=== PATIENT | male | born 2000 | race Caucasian/White ===

== ENCOUNTER 2018-09-25 16:46 | Emergency (ER) | payer BC ==
--- NOTE | 2018-09-25 17:31 | ED ---
Throat Pain/Nasal Congestion - HPI Summary HPI Summary: This patient is a 18 year old M presenting to [facility] c/o throat pain and bleeding that began today. Pt was recently dx with mono and given prednisone, today is his last dose. The patient rates the pain 4/10 in severity. Patient reports fever that has resolved. He states he was could feel blood gather in the back of his throat yesterday and was able to bring it up, but that it is worse today. He received a strep test at the time of the mono test this was a week ago today. Pt states he has had throat swelling for the last 2 weeks. He was seen at his home doctor. - History of Current Complaint Chief Complaint: EDThroatPain Time Seen by Provider: 09/25/18 17:28 Hx Obtained From: Patient Onset/Duration: Lasting Days, Still Present Severity: Moderate - Allergies/Home Medications Allergies/Adverse Reactions: Allergies Allergy/AdvReac Type Severity Reaction Status Date / Time cefdinir [From Omnicef] Allergy Severe Hives/Diff. Verified 09/25/18 17:01 Breathing/I tching PMH/Surg Hx/FS Hx/Imm Hx Infectious Disease History: No Infectious Disease History: Denies: Traveled Outside the [place] in Last 30 Days - Social History Occupation: Student Lives: Dormitory/Roommates Alcohol Use: Occasionally Hx Substance Use: No Substance Use Type: Reports: None Hx Tobacco Use: No Smoking Status (MU): Never Smoked Tobacco Review of Systems Positive: Fever - resolved Positive: Sore Throat, Other - bleeding from throat All Other Systems Reviewed And Are Negative: Yes Physical Exam - Summary Physical Exam Summary: Appearance: Well appearing, no pain distress Skin: warm, dry, reflects adequate perfusion Head/face: normal Eyes: EOMI, LO ENT: pharyngeal erythema, the right tonsil is inflamed and enlarged Neck: supple, non-tender Respiratory: CTA, breath sounds present Cardiovascular: RRR, pulses symmetrical Abdomen: non-tender, soft Musculoskeletal: normal, strength/ROM intact Neuro: normal, sensory motor intact, A&Ox3 Triage Information Reviewed: Yes Vital Signs On Initial Exam: Initial Vitals Temp Pulse Resp BP Pulse Ox 98.6 F 88 16 138/98 98 09/25/18 16:55 09/25/18 16:55 09/25/18 16:55 09/25/18 16:55 09/25/18 16:55 Vital Signs Reviewed: Yes Diagnostics - Vital Signs Vital Signs Temp Pulse Resp BP Pulse Ox 09/25/18 16:55 98.6 F 88 16 138/98 98 - Laboratory Result Diagrams: 09/25/18 17:42 09/25/18 17:42 Lab Statement: Any lab studies that have been ordered have been reviewed, and results considered in the medical decision making process. EENT Course/Dx - Course Assessment/Plan: This patient is a 18 year old M presenting to [facility] c/o throat pain and bleeding that began today. Pt was recently dx with mono and given prednisone, today is his last dose. Bloodwork obtained. Pt was negative for strep and positive for mono. Patient will be discharged and follow up from [facility] . The patient is agreeable with this plan. - Differential Diagnoses Differential Diagnoses: Pharyngitis, Tonsilitis - Diagnoses Provider Diagnoses: Mononucleosis, Pharyngitis Discharge - Sign-Out/Discharge Documenting (check all that apply): Patient Departure - Discharge Plan Condition: Stable Disposition: HOME Patient Education Materials: Mononucleosis (ED), Pharyngitis (ED) Referrals: [facility] [place] - Gurpreet SANTIAGO [Medical Doctor] - Additional Instructions: Follow up with your primary care physician in 1-3 days. RETURN TO THE EMERGENCY DEPARTMENT FOR CHANGING OR WORSENING SYMPTOMS. - Billing Disposition and Condition Condition: STABLE Disposition: Home - Attestation Statements Document Initiated by Mushtaq: Yes Documenting Scribe: Cliff Cordoba Provider For Whom Mushtaq is Documenting (Include Credential): Alexandre Lopez MD Scribe Attestation: Cliff Paulson scribed for Alexandre Lopez MD on 09/25/18 at 1903. Scribe Documentation Reviewed: Yes Provider Attestation: The documentation as recorded by the Cliff apodaca accurately reflects the service I personally performed and the decisions made by me, Alexandre Lopez MD
[2018-09-25 17:53] LABS: Hematocrit 41 % (42-52); Hemoglobin 13.9 g/dl (14.0-18.0); Mean Corpuscular HGB Conc 34 g/dl (31-36); Mean Corpuscular Hemoglobin 27 pg (27-31); Mean Corpuscular Volume 80 fL (80-94); Mean Platelet Volume 7.7 fL (7.4-10.4); Platelet Count 274 10^3/ul (150-450); Red Blood Count 5.15 10^6/ul (4.00-5.40); Red Cell Distribution Width 15 % (10.5-15); White Blood Count 11.5 10^3/ul (3.5-10.8)
[2018-09-25 18:01] LABS: INR 1.02 (0.77-1.02)
[2018-09-25 18:09] LABS: EGFR Non-African American 107.6 (>60)
[2018-09-25 18:30] LABS: Monocytes % 4 % (0-7)
[2018-09-25 18:50] VITALS: BP 136/89
== END 2018-09-25 18:48 | disposition home or self-care (01) ==
LOC: ED 16:46
DX: B27.90 Infectious mononucleosis, unspecified without complication (principal); J02.9 Acute pharyngitis, unspecified; Z88.1 Allergy status to other antibiotic agents
CPT/HCPCS: 36415; 80053; 85025; 85060; 85610; 85730; 86308; 87651; 99282